=== PATIENT | female | born 1990 | race American Indian/Alaskan Native ===

== ENCOUNTER 2018-06-17 09:33 | Outpatient (CLI) | payer MEDICAID ==
[2018-06-17] MEDS ORDERED: LACTATED RINGERS 500 ML IV ONE (13:03)
== END 2018-06-17 13:20 | disposition home or self-care (01) ==
LOC: LAB 09:33 → TRG 13:12 → LAB 13:20
PROVIDERS: ATTEND Advanced Practice Midwife
DX: O26.893 Other specified pregnancy related conditions, third trimester (principal); Z67.21 Type B blood, Rh negative; Z3A.30 30 weeks gestation of pregnancy
CPT/HCPCS: 86850; 86900; 86901; 96372; J2790; J7120

== ENCOUNTER 2018-08-28 07:49 | Inpatient (IN) | payer MEDICAID ==
[2018-08-28] MEDS ORDERED: ZOFRAN IV PRN (12:13)
[2018-08-28] MEDS ORDERED: SUBLIMAZE IV PRN (12:13)
[2018-08-28] MEDS ORDERED: BRETHINE IVP PRN (12:13)
[2018-08-28] MEDS ORDERED: STADOL IV PRN (12:13)
[2018-08-28] MEDS ORDERED: BRETHINE SUB-Q PRN (12:13)
[2018-08-28] MEDS ORDERED: XYLOCAINE 2% INFILTRATI ONE (12:13)
[2018-08-28] MEDS ORDERED: MINERAL OIL PO PRN (12:13)
--- NOTE | 2018-08-28 12:26 | History and Physical Report ---
History of Present Illness Date of examination: 08/28/18 Chief complaint: BPP 4/8 History of present illness: Pt is a 28yo BF EDC 08/21/18; EGA 41 0/7 weeks presents for induction due to BPP 4/8. She received care at [facility] since 12 weeks and course has been unremarkable. records are available and GBS is Negative. Past History Past Medical History: no pertinent history Past Surgical History: no surgical history FAMILY SOCIOLOGIST History: abnormal PAP smear Social history: no significant social history, - Obstetrical History Expected Date of Delivery: 08/21/18 Actual Gestation: 41 Week(s) 1 Day(s) : 4 Medications and Allergies Allergies Allergy/AdvReac Type Severity Reaction Status Date / Time No Known Allergies Allergy Verified 08/28/18 08:19 Home Medications Medication Instructions Recorded Confirmed Last Taken Type No Known Home Medications [No 08/28/18 08/28/18 Unknown History Reported Home Medications] Active Meds: Active Medications Butorphanol Tartrate (Stadol) 2 mg IV Q2H PRN PRN Reason: Pain , Severe (7-10) Ephedrine Sulfate (Ephedrine Sulfate) 10 mg IV Q2M PRN PRN Reason: Hypotension Fentanyl (Sublimaze) 100 mcg IV Q2H PRN PRN Reason: Labor Pain Oxytocin/Sodium Chloride (Pitocin/Ns 20 Unit/1000ml Drip) 20 units in 1,000 mls @ 125 mls/hr IV DIRECT EVETTE Oxytocin/Sodium Chloride (Pitocin/Ns 30 Unit/500ml) 30 units in 500 mls @ 1 mls/hr IV TITR EVETTE; Protocol Oxytocin/Sodium Chloride (Pitocin/Ns 30 Unit/500ml) 30 units in 500 mls @ 4 mls/hr IV TITR EVETTE; Protocol Lactated Ringer's (Lactated Ringers) 1,000 mls @ 125 mls/hr IV DIRECT EVETTE Lidocaine (Xylocaine 2%) 20 ml INFILTRATI ONCE ONE Stop: 08/28/18 12:14 Mineral Oil (Mineral Oil) 30 ml PO QHS PRN PRN Reason: Constipation Ondansetron HCl (Zofran) 4 mg IV Q8H PRN PRN Reason: Nausea And Vomiting Terbutaline Sulfate (Brethine) 0.25 mg SUB-Q ONCE PRN PRN Reason: Hyperstimulation/Hypertonicity Terbutaline Sulfate (Brethine) 0.25 mg IVP ONCE PRN PRN Reason: Hyperstimulation/Hypertonicity Review of Systems All systems: negative - Vital Signs Vital signs: Vital Signs Pulse BP 80 121/67 08/28/18 08:12 08/28/18 08:12 Temp Pulse Resp BP Pulse Ox 98.2 F 77 20 129/68 08/28/18 10:00 08/28/18 12:03 08/28/18 10:00 08/28/18 12:03 - Physical Exam Cardiovascular: Regular rate Lungs: Positive: Clear to auscultation Abdomen: Positive: normal appearance Genitourinary (Female): Positive: normal external genitalia Vagina: Positive: normal moisture Uterus: Positive: enlarged Extremities: Positive: normal - Obstetrical FHR: category 1 Uterine Contraction Monitor Mode: External Uterine Contraction Pattern: Irregular Uterine Tone Measurement Phase: Contraction Uterine Contraction Intensity: Mild Results Result Diagrams: 08/28/18 12:36 All other labs normal. Ultrasound: report reviewed (BPP 05/20) Assessment and Plan - Patient Problems (1) 41 weeks gestation of Onset Date: 08/28/18 Current Visit: Yes Status: Acute Plan to address problem: A: IUP @ 41 0/7 weeks Non-reassuring surveillance P: Admit to L&D for pitocin induction of labor (2) Non-reassuring electronic monitoring tracing Onset Date: 08/28/18 Current Visit: Yes Status: Acute
[2018-08-28] MEDS ORDERED: PITOCin/NS 20 UNIT/1000ML DRIP 20 UNITS/1,000 ML BAG IV SCH (13:00)
[2018-08-28] MEDS ORDERED: PITOCin/NS 30 UNIT/500ML 30 UNITS/500 ML BAG IV SCH ×2 (13:00)
[2018-08-28 13:01] LABS: Hemoglobin 11.5 gm/dl (10.1-14.3); Mean Corpuscular HGB Conc 33 % (30-34); Mean Corpuscular Volume 78 fl (79-97); Platelet Count 138 K/mm3 (140-440); Red Blood Count 4.51 M/mm3 (3.65-5.03); Red Cell Distribution Width 19.6 % (13.2-15.2)
[2018-08-28] MEDS: LACTATED RINGERS 1,000 ML IV SCH ×2 (20:01→22:50)
[2018-08-28] MEDS ORDERED: NARCAN 2 MG/2 ML IV PRN (22:39)
--- NOTE | 2018-08-28 22:46 | Anesthesia Consultation ---
Anesthesia Consult and Med Hx Date of service: 08/28/18 - Airway Anesthetic Teeth Evaluation: Good ROM Head & Neck: Adequate Mental/Hyoid Distance: Adequate Mallampati Class: Class II Intubation Access Assessment: Probably Good - Pulmonary Exam CTA: Yes - Cardiac Exam Cardiac Exam: RRR - Pre-Operative Health Status ASA Pre-Surgery Classification: ASA2 Proposed Anesthetic Plan: Epidural - Pulmonary Hx Smoking: No Hx Asthma: No Hx Respiratory Symptoms: No SOB: No COPD: No Home Oxygen Therapy: No Hx Pneumonia: No Hx Sleep Apnea: No - Cardiovascular System Hx Hypertension: No Hx Coronary Artery Disease: No Hx Heart Attack/AMI: No Hx Angina: No Hx Percutaneous Transluminal Coronary Angioplasty (PTCA): No Hx Cardia Arrhythmia: No Hx Pacemaker: No Hx Internal Defibrillator: No Hx Valvular Heart Disease: No Hx Heart Murmur: No Hx Peripheral Vascular Disease: No - Central Nervous System Hx Neuromuscular Disorder: No Hx Seizures: No CVA: No Hx Back Pain: Yes Hx Psychiatric Problems: No - Gastrointestinal Hx Ulcer: No Hx Gastroesophageal Reflux Disease: Yes - Endocrine Hx Renal Disease: No Hx End Stage Renal Disease: No Hx Cirrhosis: No Hx Liver Disease: No Hx Insulin Dependent Diabetes: No Hx Non-Insulin Dependent Diabetes: No Hx Thyroid Disease: No Hx Hypothyroidism: No Hx Hyperthyroidism: No - Hematic Hx Anemia: No Hx Sickle Cell Disease: No - Other Systems Hx Alcohol Use: No Hx Substance Use: No Hx Cancer: No Hx Obesity: No
[2018-08-28] MEDS ORDERED: fentaNYL-BUPIV 2 MCG/ML-0.125% 200 MCG/100 ML BAG EPIDURAL SCH (23:00)
--- NOTE | 2018-08-29 02:34 | Procedure Note ---
OB Delivery Note - Delivery Date of Delivery: 08/29/18 Surgeon: MIAH UNDERWOOD Estimated blood loss: 100cc - Vaginal Delivery presentation: vertex Delivery position: OA Intrapartum events: PROM->1hr before delivery Delivery induction: oxytocin Delivery augmentation: rupture of membranes, pitocin Delivery monitor: external FHT, external uterine Route of delivery: Delivery placenta: spontaneous Delivery cord: nuchal cord, 3 umbilical vessels Episiotomy: none Delivery laceration: none Anesthesia: epidural Delivery comments: Infant delivered OA and placed on Mom's chest for [id number] bonding and delayed cord clamping, cut by Dad - A at 1 minute: 8 at 5 minutes: 9 Gender: Female (3715gms)
[2018-08-29] MEDS ORDERED: PHENERGAN PR PRN (02:36)
[2018-08-29] MEDS ORDERED: BENADRYL PO PRN (02:36)
[2018-08-29] MEDS ORDERED: ZOFRAN IV PRN (02:36)
[2018-08-29] MEDS ORDERED: PHENERGAN PO PRN (02:36)
[2018-08-29] MEDS ORDERED: TUCKS PAD TP PRN (02:36)
[2018-08-29] MEDS ORDERED: NORCO 5/325 PO PRN (02:36)
[2018-08-29] MEDS ORDERED: LANSINOH TP PRN (02:36)
[2018-08-29] MEDS ORDERED: MILK OF MAGNESIA PO PRN (02:36)
[2018-08-29] MEDS ORDERED: DULCOLAX PR PRN (02:36)
[2018-08-29] MEDS ORDERED: TYLENOL PO PRN (02:36)
[2018-08-29] MEDS ORDERED: SODIUM CHLORIDE FLUSH SYRINGE 10 ML IV NR (03:00)
[2018-08-29] MEDS ORDERED: PITOCin/NS 20 UNIT/1000ML DRIP 20 UNITS/1,000 ML BAG IV SCH (03:00)
[2018-08-29] MEDS: IBUPROFEN PO SCH ×3 (05:39→23:57)
[2018-08-29] MEDS: PRENATAL VITAMIN PO SCH (10:04)
[2018-08-29] MEDS: FEOSOL PO SCH ×2 (10:04→21:28)
[2018-08-29] MEDS: COLACE PO SCH ×2 (10:04→21:28)
[2018-08-29 17:25] LABS: Hematocrit 29.6 % (30.3-42.9); Hemoglobin 9.5 gm/dl (10.1-14.3)
[2018-08-30] MEDS: IBUPROFEN PO SCH ×2 (05:27→12:56)
[2018-08-30] MEDS ORDERED: BOOSTRIX IM ONE (06:00)
[2018-08-30] MEDS ORDERED: M-M-R II VACCINE SUB-Q ONE (06:00)
--- NOTE | 2018-08-30 09:36 | Progress Note ---
Assessment and Plan - Patient Problems (1) 41 weeks gestation of Onset Date: 08/28/18 Current Visit: Yes Status: Resolved (2) Non-reassuring electronic monitoring tracing Onset Date: 08/28/18 Current Visit: Yes Status: Resolved (3) (normal spontaneous vaginal delivery) Onset Date: 08/30/18 Current Visit: Yes Status: Resolved Plan to address problem: A: S/P - PPD #1 Doing well Asymptomatic anemia - stable P: May go home today Subjective - Subjective Date of service: 08/30/18 Principal diagnosis: s/p - PPD #1 Interval history: Pt is feeling well without complaints. Bleeding improved. Patient reports: appetite normal, voiding normally, pain well controlled, flatus, ambulating normally, no dizzy ambulation, no nauseated : doing well, bottle feeding Objective - Vital Signs Latest vital signs: Vital Signs Temp Pulse Resp BP BP Pulse Ox 08/30/18 08:10 97.6 F 60 18 97/60 08/30/18 06:27 18 08/30/18 05:27 18 08/30/18 00:57 18 08/30/18 00:00 98.6 F 69 18 118/68 08/29/18 23:57 18 08/29/18 20:43 98.6 F 18 117/80 08/29/18 15:19 97.3 F L 71 20 107/60 99 08/29/18 11:26 98.5 F 73 20 107/64 97 Intake and Output 08/29/18 08/30/18 08/30/18 22:59 06:59 14:59 Intake Total 240 300 360 Balance 240 300 360 Intake: Oral 240 360 Intake, Free Water 300 Other: Total, Intake Amount 240 360 # Voids Void 1 1 - Exam Breasts: Present: deferred Abdomen: Present: normal appearance, soft Uterus: Present: normal, firm, fundal height below umbilicus Extremities: Present: normal - Labs Labs: Abnormal lab results 08/29/18 Range/Units 17:10 Hgb 9.5 L (10.1-14.3) gm/dl Hct 29.6 L (30.3-42.9) % Laboratory Tests 08/28/18 08/28/18 08/28/18 12:36 12:36 12:36 WBC 6.5 RBC 4.51 Hgb 11.5 Hct 35.0 MCV 78 L MCH 26 L MCHC 33 RDW 19.6 H Plt Count 138 L RPR Nonreactive Hep Bs Antigen Blood Type B NEGATIVE Antibody Screen Positive Antibody Identification Anti-D (Passively Aquired) Screen 08/28/18 08/29/18 08/29/18 20:24 17:10 21:19 WBC RBC Hgb 9.5 L Hct 29.6 L MCV MCH MCHC RDW Plt Count RPR Hep Bs Antigen Non-reactive Blood Type B NEGATIVE Antibody Screen Negative Antibody Identification Screen Negative
[2018-08-30] MEDS: PRENATAL VITAMIN PO SCH (10:29)
[2018-08-30] MEDS: COLACE PO SCH (10:29)
[2018-08-30] MEDS: FEOSOL PO SCH (10:29)
--- NOTE | 2018-08-30 11:10 | Discharge Summary ---
Providers - Providers Date of Admission: 08/28/18 12:32 Date of discharge: 08/30/18 Attending physician: MIAH UNDERWOOD Primary care physician: MIAH UNDERWOOD Hospitalization Reason for admission: induction of labor, IUP at term Delivery: Episiotomy: none Laceration: none Other procedures: none complications: none Discharge diagnosis: IUP at term delivered [place] baby: female Hospital course: Pt is a 28yo BF EDC 08/21/18; EGA 41 0/7 weeks who presented for induction due to BPP 05/20. She received care at [facility] since 12 weeks and course has been unremarkable. She received IV pitocin and subsequently delivered a viable 8lb 3oz female infant. course was unremarkable and pt was discharged to home on PPD#1 in stable condition. Condition at discharge: Good Disposition: DC-01 TO HOME OR SELFCARE - Discharge Diagnoses (1) 41 weeks gestation of Status: Resolved (2) Non-reassuring electronic monitoring tracing Status: Resolved (3) (normal spontaneous vaginal delivery) Status: Resolved Plan - Discharge Medications Prescriptions: Ferrous Sulfate [Feosol 325 MG tab] 325 mg PO BID #60 tablet Ibuprofen [Motrin 600 MG tab] 600 mg PO Q6HR #30 tablet Vit-Fe Fumar-FA [ Vitamin] 1 each PO QDAY #30 tablet - Provider Discharge Summary Activity: routine, no sex for 6 weeks, no heavy lifting 4 weeks, no strenuous exercise Diet: routine Instructions: routine Additional instructions: [] Smoking cessation referral if applicable(refer to patient education folder for contact #) [] Refer to [facility] Booklet Call your doctor immediately for: * Fever > 100.5 * Heavy vaginal bleeding ( >1 pad per hour) * Severe persistent headache * Shortness of breath * Reddened, hot, painful area to leg or breast * Drainage or odor from incision. * Keep incision clean and dry at all times and follow doctor's instructions regarding bathing/showering - Follow up plan Follow up: MIAH UNDERWOOD MD [Primary Care Provider] - 6 Weeks AMLINDA MARIE CNM [Advanced Practice Nurse] - 6 Weeks
[2018-08-30 16:51] VITALS: BP 118/75
--- NOTE | 2018-09-05 15:08 | Ultrasound Report ---
ULTRASOUND BIOPHYSICAL PROFILE INDICATION: well-being, postdates, evaluate amniotic fluid. COMPARISON: None available. FINDINGS: heart rate is 167 beats per minute. breathing movement = 2 Gross body movement = 0 tone = 0 Qualitative amniotic fluid volume = 2 IMPRESSION: biophysical profile = 05/20 Signer Name: Corey Shaikh Jr, MD Signed: 08/28/2018 11:49 AM Workstation Name: [id number]
--- NOTE | 2018-09-05 15:21 | Ultrasound Report ---
Obstetrical ultrasound limited INDICATION: well-being FINDINGS: The NICOLE measures 7.1 cm. Single gestation in cephalic position. heart rates 167 bpm. Signer Name: Marcos Angulo MD Signed: 09/05/2018 3:17 PM Workstation Name: [id number]
== END 2018-08-30 16:40 | disposition home or self-care (01) | DRG 775 ==
LOC: TRG 07:49 → LD 12:32 → OB 08-29 05:05
PROVIDERS: ADMIT Obstetrics & Gynecology; ATTEND Obstetrics & Gynecology
PROC: 10E0XZZ Delivery of Products of Conception, External Approach (ICD-10-PCS; principal; 2018-08-29)
PROC: 3E033VJ Introduction of Other Hormone into Peripheral Vein, Percutaneous Approach (ICD-10-PCS; 2018-08-29)
PROC: 3E0R3BZ Introduction of Anesthetic Agent into Spinal Canal, Percutaneous Approach (ICD-10-PCS; 2018-08-29)
PROC: 00HU33Z Insertion of Infusion Device into Spinal Canal, Percutaneous Approach (ICD-10-PCS; 2018-08-29)
PROC: 3E0334Z Introduction of Serum, Toxoid and Vaccine into Peripheral Vein, Percutaneous Approach (ICD-10-PCS; 2018-08-29)
PROC: 3E0234Z Introduction of Serum, Toxoid and Vaccine into Muscle, Percutaneous Approach (ICD-10-PCS; 2018-08-30)
DX: O42.92 Full-term premature rupture of membranes, unspecified as to length of time between rupture and onset of labor (principal); O99.62 Diseases of the digestive system complicating childbirth; K21.9 Gastro-esophageal reflux disease without esophagitis; O99.02 Anemia complicating childbirth; D64.9 Anemia, unspecified; O69.81X0 Labor and delivery complicated by cord around neck, without compression, not applicable or unspecified; Z3A.41 41 weeks gestation of pregnancy; Z37.0 Single live birth; Z23 Encounter for immunization
CPT/HCPCS: 36415; 59025; 76815; 76819; 85014; 85018; 85027; 85461; 86592; 86706; 86850; 86870; 86900; 86901; G0378; A6250; J2590; J2790; J3010; J7120